=== PATIENT | male | born 1955 | race Caucasian/White ===

== ENCOUNTER → 2018-02-26 | Outpatient (CLI) | payer BC | LOC: RAD 08:58 | PROVIDERS: ATTEND Nurse Practitioner | DX: C22.0 Liver cell carcinoma (principal) ==

== ENCOUNTER → 2018-03-05 | Outpatient (CLI) | payer BC | LOC: LAB.O 09:13 | PROVIDERS: ATTEND Nurse Practitioner | DX: C22.0 Liver cell carcinoma (principal) ==